=== PATIENT | female | born 1985 | race Caucasian/White ===

== ENCOUNTER 2018-03-05 21:37 | Observation (INO) | payer MEDICAID, MEDICARE ==
[2018-03-06] MEDS ORDERED: Ondansetron ODT 8 MG TAB ONE (00:17)
[2018-03-06] MEDS ORDERED: Morphine 4 MG/ML VIAL ONE ×2 (00:17→11:20)
[2018-03-06 01:00] LABS: #Eosinphils 0.1 thou/uL (0.0-0.7); #Lymphocytes 1.6 thou/uL (1.20-3.40); #Monocytes 0.7 thou/uL (0.11-0.59); #Neutrophils 8.9 thou/uL (1.40-6.50); %Basophils 0.3 % (0.0-1.0); %Eosinophils 0.7 % (0.0-10.0); %Lymphocytes 14.3 % (21.0-51.0); %Monocytes 6.4 % (0.0-10.0); %Neutrophils 78.3 % (42.0-75.0); Hemoglobin 10.3 g/dL (12.0-16.0); Mean Corpuscular HGB CONC 31.6 g/dL (32.0-36.0); Mean Corpuscular Hemoglobin 25.3 pg (27.0-31.0); Mean Corpuscular Volume 80.1 fl (81.0-99.0); Mean Platelet Volume 8.4 fL (7.4-10.4); Platelet Count 382 thou/uL (130-400); RBC Distribution Width 13.3 % (11.5-14.5); Red Blood Cell (RBC) Count 4.07 mill/uL (4.20-5.40); White Blood Cell (WBC) Count 11.4 thou/uL (4.8-10.8)
[2018-03-06 01:25] LABS: Anion Gap 12 mmol/L (10-20); BUN (Urea Nitrogen) 16 mg/dL (7.0-18.7); Calc. Creatinine Clearance 0 mL/min (70-130); Calcium 8.9 mg/dL (7.8-10.44); Carbon Dioxide 25 mmol/L (22-29); Chloride 105 mmol/L (98-107); Estimated GFR-MDRD 90; Glucose 125 mg/dL (70-105); Potassium 3.8 mmol/L (3.5-5.1); Sodium 138 mmol/L (136-145)
[2018-03-06 02:11] VITALS: BMI 43.3
[2018-03-06] MEDS: Morphine 4 MG/ML VIAL SLOW IVP PRN ×3 (02:29→07:35)
[2018-03-06 07:50] VITALS: BP 120/79; TEMP 97.4
--- NOTE | 2018-03-06 08:51 | HP ---
CHIEF COMPLAINT: Right arm pain. HISTORY OF PRESENT ILLNESS: Ms. Amezcua is a 32-year-old female who fell yesterday. She landed on h er right outstretched arm. She has a history of previous distal humerus fracture at the age of 7 and then subsequently at the age of 10. Her family reports since that time she never had full motion, b ut could flex to 90 degrees and had full extension. She is left hand dominant. 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 She was seen in an outside Emergenc y Department and then transferred over for her elbow injury last night. She has been admitted to the hospital. She is resting comfortably currently. They report that her arm has been out in a straigh t position. She has been unable to flex the arm since her fall. Her arm feels locked. PAST MEDICAL HISTORY: Cri-du-chat disease, previous right distal humerus fracture as a young woman, previous tooth extraction. PAST SURGICAL HISTORY: Positive only for tooth extraction. SOCIAL HISTORY: The patient denies tobacco, alcohol, or drug use. Her family is at the bedside. FAMILY MEDICAL HISTORY: Noncontributory. IMAGES: X-rays demonstrate evidence of previous distal humerus fracture, which is well healed. Ther e is also a nonanatomic relationship between the distal humerus and the radius and ulna. The radial head is dislocated posteriorly. The ulna is subluxated. PHYSICAL EXAMINATION: VITAL SIGNS: Temperature is 97.4, pulse is 89, respiratory 16, oxygen saturation 95%, blood pressure is 120/79. GENERAL: She is lying supine. She does not talk any significant amount or answer questions. Her fa shonda is at the bedside to answer for her. RESPIRATORY: She is breathing comfortably. ABDOMEN: Soft and nontender. CARDIOVASCULAR: Pulse is palpable. MUSCULOSKELETAL: The patient's right arm is locked in an extended position. She has no ability to f ophelia the arm actively or passively. Passive motion does cause pain. She has a palpable pulse. She i s neurovascularly intact in the hand. She has faint swelling about the elbow. IMPRESSION: Right elbow dislocation. PLAN: At this point, the patient will need to go to the operating room for a closed reduction proced ure. Hopefully, under sedation we can reduce the elbow back into its anatomic position. We will use intraoperative x-ray to evaluate this. If this is unsuccessful, we may need to go on to an open red uction procedure. I discussed this with the patient and her family. Her elbow will not be normal as she has had limited motion for many years, but our goal is to return her to her previous function. She will be splinted post procedure. The family is aware of risks and benefits and would like to pro ceed.
[2018-03-06] MEDS ORDERED: Escitalopram Oxalate 20 mg Tablet PO SCH (09:00)
[2018-03-06] MEDS ORDERED: Sodium Chloride 0.9% 1,000 ML IV SCH (09:00)
[2018-03-06] MEDS ORDERED: Aripiprazole 10 MG TAB PO SCH (09:00)
[2018-03-06] MEDS ORDERED: ALPRAZolam 0.25 MG TAB PO SCH (09:00)
[2018-03-06] MEDS ORDERED: Midazolam HCl 2 mg/2 ml Vial ONE (12:28)
[2018-03-06] MEDS ORDERED: Fentanyl 100 MCG/2 ML VIAL ONE ×2 (12:28→13:41)
[2018-03-06] MEDS ORDERED: Acetaminophen/Codeine 30-300mg Tablet PO PRN (13:07)
[2018-03-06] MEDS ORDERED: Ondansetron HCl/PF 4 MG/2 ML Vial IVP PRN (13:28)
[2018-03-06] MEDS ORDERED: Promethazine HCl 25 MG/ML VIAL IM PRN (13:28)
[2018-03-06] MEDS ORDERED: Promethazine HCl 25 MG/ML VIAL SLOW IVP PRN (13:28)
--- NOTE | 2018-03-06 14:43 | OP ---
DATE OF OPERATION: 03/06/2018 OPERATION: Closed reduction of right elbow dislocation. PREOPERATIVE DIAGNOSIS: Right elbow dislocation. POSTOPERATIVE DIAGNOSIS: Right elbow dislocation. COMPLICATIONS: None. ESTIMATED BLOOD LOSS: None. SURGEON: Lamonte Yang M.D. ESCALATION ENGINEER: Cosme Nevarez PA-C. INDICATIONS: Ms. Amezcua is a 32-year-old female who fell. She dislocated her right elbow. She had an attempted reduction in the emergency department; however, this was unsuccessful. She was indicat ed for closed reduction in the operating room. Risks have been reviewed. She elected to proceed wit h the operation. DESCRIPTION OF PROCEDURE: Ms. Amezcua was identified in the preoperative holding area. Her correct extremity was marked. She was carried to the operating room. She was positioned supine. General an esthesia was induced. The right upper extremity was evaluated with intraoperative x-ray. We identif ied that she did in fact have a dislocated elbow. We then used manipulation, traction, rotation and other maneuvers to reduce the elbow back into its anatomic position. We took x-ray images confirming this. It was concentric and well reduced. The elbow appeared stable. We placed her in a posterior splint to stabilize the elbow and protect it. She was taken to the recovery room in good condition.
[2018-03-06] MEDS ORDERED: Succinylcholine Chloride 20 MG/ML 10 ml SYRINGE FS ONE (14:51)
[2018-03-06] MEDS ORDERED: PROPOFOL 200 MG/20 ML VIAL ONE (14:51)
[2018-03-06] MEDS ORDERED: Lidocaine 1% PF 5 ML VIAL ONE (14:51)
--- NOTE | 2018-03-06 18:11 | RAD ---
RIGHT ELBOW TWO VIEWS: 03/06/18 HISTORY: Closed reduction. The dislocation has been reduced. On these images there appears to be normal alignment of the humerus , ulna and radius. IMPRESSION: Reduction of dislocation. POS: [facility]
== END 2018-03-06 15:45 | disposition home or self-care (01) ==
LOC: ERS 21:37 → SURG B 03-06 01:59
PROVIDERS: ADMIT Orthopaedic Surgery; ATTEND Orthopaedic Surgery
PROC: 0RSLXZZ Reposition Right Elbow Joint, External Approach (ICD-10-PCS; principal; 2018-03-05)
DX: S53.004A Unspecified dislocation of right radial head, initial encounter (principal); S53.101A Unspecified subluxation of right ulnohumeral joint, initial encounter; Q93.4 Deletion of short arm of chromosome 5; Z79.899 Other long term (current) drug therapy; W19.XXXA Unspecified fall, initial encounter
CPT/HCPCS: 24605; 73070; 76000; 80048; 85025; 94760; 96374 ×2; 96376; 99285; G0378; J2001; J2250; J2270; J2704; J3010